=== PATIENT | female | born 1975 | race Caucasian/White ===

== ENCOUNTER 2023-06-11 07:07 | Day surgery (SDC) | payer BC ==
[~2023-06-11 07:07] MED LIST: Lactated Ringers 1,000 ML IV SCH; cefOXitin 1 GM in Sodium Chloride 0.9% 100 ML IV ONE
[2023-06-11] MEDS ORDERED: propofoL 50 ML ONE (07:21)
[2023-06-11] MEDS ORDERED: Dexmedetomidine 200 MCG/2 ML SDV ONE (07:22)
[2023-06-11] MEDS ORDERED: Water For Injection, Sterile 20 ML ONE (07:23)
[2023-06-11] MEDS ORDERED: Lactated Ringers 1,000 ML IV SCH (10:00)
== END 2023-06-11 11:10 | disposition home or self-care (01) ==
LOC: MW.SDS 07:07
PROVIDERS: ATTEND Surgery
DX: D12.3 Benign neoplasm of transverse colon (principal); D12.4 Benign neoplasm of descending colon; D12.8 Benign neoplasm of rectum; R93.5 Abnormal findings on diagnostic imaging of other abdominal regions, including retroperitoneum; Z88.6 Allergy status to analgesic agent; Z88.5 Allergy status to narcotic agent; Z91.010 Allergy to peanuts; F17.210 Nicotine dependence, cigarettes, uncomplicated; Z79.899 Other long term (current) drug therapy
CPT/HCPCS: 36415; 45380; 81025; 82378; 84702; J2704; J7120; 00811; J3490